=== PATIENT | female | born 1970 | race Hispanic/Latino ===

== ENCOUNTER 2018-03-26 22:23 | Emergency (ER) | payer OTHER ==
[2018-03-26 22:56] LABS: RAPID GROUP A STREP NEGATIVE (NEGATIVE)
[2018-03-26] MEDS ORDERED: GUAIFENESIN-CODEINE 5 ML SYRUP ONE (23:41)
[2018-03-26] MEDS ORDERED: BENZONATATE 100 MG CAPSULE PO ONE (23:41)
[2018-03-27] MEDS ORDERED: AZITHROMYCIN 250 MG TABLET PO ONE (00:13)
[2018-03-27] MEDS ORDERED: ALBUTEROL SULFATE 0.083% 2.5 MG/3 ML INH IH ONE (00:25)
== END 2018-03-27 01:19 | disposition home or self-care (01) ==
LOC: EDH 22:23
DX: J18.9 Pneumonia, unspecified organism (principal); I10 Essential (primary) hypertension; E11.9 Type 2 diabetes mellitus without complications; Z90.710 Acquired absence of both cervix and uterus; Z90.89 Acquired absence of other organs; Z98.890 Other specified postprocedural states
CPT/HCPCS: 71046; 87804; 87880; 93005; 94640

== ENCOUNTER 2018-06-01 17:46 | Inpatient (IN) | payer OTHER ==
[~2018-06-01] VITALS: Ht 162.6 cm; Wt 95.6 kg
[2018-06-01 18:09] LABS: BASOPHILS % (AUTO) 0.9 % (0.0-5.0); EOSINOPHILS % (AUTO) 2.7 % (0.0-8.0); HEMATOCRIT 41.4 % (36-48); LYMPHOCYTES % (AUTO) 29.5 % (21.0-51.0); MEAN CORPUSCULAR HGB CONC 34.7 g/dL (32.0-36.0); MEAN CORPUSCULAR VOLUME 89.4 fL (79-99); MONOCYTES % (AUTO) 6.5 % (3.0-13.0); NEUTROPHILS % (AUTO) 60.4 % (40.0-77.0); PLATELET COUNT (AUTO) 289 K/uL (130-400); RED BLOOD CELL COUNT(AUTO) 4.63 MIL/uL (4.00-5.50); RED CELL DISTRIBUTION WIDTH 13.3 % (11.0-15.5); WHITE BLOOD COUNT (AUTO) 8.9 K/uL (4.8-10.8)
[2018-06-01 18:27] LABS: INR 0.95 (0.85-1.15); PARTIAL THROMBOPLASTIN TIME 25.4 SEC (26.3-35.5)
[2018-06-01 18:30] LABS: ALBUMIN 3.6 g/dL (3.5-5.0); BILIRUBIN,TOTAL 0.9 mg/dL (0.2-1.0); CREATININE 0.9 mg/dL (0.5-1.5); POTASSIUM 3.6 mmol/L (3.5-5.1); TOTAL PROTEIN, SERUM 7.4 g/dL (6.0-8.3)
[2018-06-01 18:36] LABS: BILIRUBIN,URINE Negative (NEGATIVE); COLOR,URINE Yellow (YELLOW); GLUCOSE, URINE (UA) >=1000 mg/dL (NEGATIVE); KETONES,URINE Negative (NEGATIVE); LEUKOCYTE ESTERASE ,URINE Negative (NEGATIVE); NITRATE,URINE Negative (NEGATIVE); OCCULT BLOOD,URINE Negative (NEGATIVE); PROTEIN,URINE Negative (NEGATIVE)
[2018-06-01 18:44] LABS: AMPHET/METH SCREEN,URINE NEGATIVE (NEGATIVE); BARBITURATE SCREEN, URINE NEGATIVE (NEGATIVE); BENZODIAZEPINES SCREEN,URINE NEGATIVE (NEGATIVE); CANNABINOID SCREEN,URINE NEGATIVE (NEGATIVE); COCAINE SCREEN,URINE NEGATIVE (NEGATIVE); OPIATE SCREEN,URINE NEGATIVE (NEGATIVE); PHENCYCLIDINE SCREEN,URINE NEGATIVE (NEGATIVE)
[2018-06-01] MEDS ORDERED: INSULIN HUMULIN R 100 UNIT/ML 3ML ONE (18:59)
[2018-06-01 19:03] LABS: AMORPHOUS SEDIMENT,UR Few /LPF (None Seen); BACTERIA,URINE Few /HPF (None Seen); RBC,URINE None Seen /HPF (0-1); SQUAMOUS EPITHELIAL CELL,UR 0-2 /HPF (0-2); WBC,URINE 0-1 /HPF (0-1)
[2018-06-01 19:12] LABS: APPEARANCE,URINE SLIGHTLY CLOUDY (CLEAR)
[2018-06-01] MEDS ORDERED: ACETAMINOPHEN 325 MG TAB PO PRN (20:15)
[2018-06-01] MEDS ORDERED: ONDANSETRON HCL 4 MG/2 ML VIAL IV PRN (20:15)
[2018-06-01] MEDS ORDERED: SODIUM CHLORIDE 0.9% 1000ML 1,000 ML IV ONE (20:31)
[2018-06-01] MEDS ORDERED: ASPIRIN 81MG TAB.CHEW ONE (20:31)
[2018-06-01] MEDS ORDERED: CLOPIDOGREL BISULFATE 300 MG TAB ONE (20:31)
[2018-06-01 21:45] VITALS: BP 159/71
[2018-06-01] MEDS ORDERED: CHOL100053 PO (23:10)
[2018-06-01] MEDS ORDERED: SIMV10TA6 PO (23:10)
[2018-06-01] MEDS ORDERED: EMPA10TA PO (23:10)
[2018-06-02] VITALS: BP 164/78
[2018-06-02] MEDS: FAMOTIDINE/PF 20 MG/2 ML VIAL IV SCH ×3 (02:19→21:37)
[2018-06-02] MEDS: ACETAMINOPHEN 325 MG TAB PO PRN (02:22)
[2018-06-02 04:00] VITALS: BP 168/80
[2018-06-02 06:08] LABS: HEMOGLOBIN A1C 9.7 % (4.0-6.0)
[2018-06-02 06:39] LABS: THYROID STIMULATING HORMONE 1.38 uIU/mL (0.36-3.74)
[2018-06-02] MEDS ORDERED: INSULIN HUMULIN R 100 UNIT/ML 3ML ONE (07:57)
[2018-06-02 08:00] VITALS: BP 161/77
[2018-06-02] MEDS: INSULIN HUMULIN R 100 UNIT/ML 3ML SQ SCH ×3 (08:06→21:41)
[2018-06-02] MEDS: VITAMIN D PO SCH (09:00)
[2018-06-02] MEDS ORDERED: GADODIAMIDE 10 MMOL/20 ML ML IV ONE (09:21)
--- NOTE | 2018-06-02 10:10 | NUR ---
DYSPHAGIA EVAL COMPLETE. -S/S OF ASPIRATION. RECOMMEND REGULAR, THIN LIQUID DIET; PILLS WHOLE WITH LIQUIDS. PATIENT INFORMATION: Pt IS A 47 Y.O. FEMALE REFERRED FOR A BEDSIDE DYSPHAGIA EVALUATION SECONDARY TO ADMITTING DIAGNOSIS OF TIA. Pt COOPERATIVE WITH EVALUATION. Pt CURRENTLY ADMITTED SECONDARY TO TIA AND UNCONTROLLED NON-INSULIN DEPENDENT DIABETES MELLITUS. Pt HAS A PAST MEDICAL HISTORY SIGNIFICANT FOR NON-INSULIN DEPENDENT DIABETES MELLITUS, GERD, OBESITY, TOBACCO ABUSE, PARTIAL HYSTERECTOMY, TUBAL LIGATION, , TONSILLECTOMY, RHINOPLASTY. EVALUATION: SWALLOW FUNCTION AND EFFICIENCY WITHIN FUNCTIONAL LIMITS. ORAL MOTOR STRENGTH, COORDINATION, AND ROM WITHIN FUNCTIONAL LIMITS. LARYNGEAL ELEVATION/EXCURSION STRONG WITH TIMELY PHARYNGEAL RESPONSE. NO OVERT SIGNS OR SYMPTOMS OF ASPIRATION PRESENT AT BEDSIDE. VOCAL QUALITY CLEAR WITH NO THROAT CLEAR OR COUGH RESPONSE PRESENT. RECOMMENDATIONS: 1. REGULAR TEXTURE, THIN LIQUID DIET; PILLS WHOLE WITH LIQUIDS. 2. COMPENSATORY STRATEGIES (PROPHYLAXIS): *SEATED AT 90 DEGREE ANGLE G-CODES SWALLOWING: [id number] Addendum: 06/02/18 at 1239 by JUANA [facility] Amended: Links added.
--- NOTE | 2018-06-02 10:20 | NUR ---
COGNITIVE EVAL COMPLETE. COGNITIVE-LINGUISTIC ABILITIES WITHIN FUNCTIONAL LIMITS. PATIENT INFORMATION: Pt IS A 47 YEAR OLD FEMALE REFERRED FOR A COGNITIVE-LINGUISTIC EVALUATION SECONDARY TO DIAGNOSIS OF TIA. Pt COOPERATIVE DURING THE EVALUATION AND SERVED THE PRIMARY INFORMANT FOR MEDICAL AND SOCIAL HISTORY. Pt CURRENTLY ADMITTED SECONDARY TO TIA. Pt HAS A PAST MEDICAL HISTORY SIGNIFICANT FOR NON-INSULIN DEPENDENT DIABETES MELLITUS, GERD, OBESITY, TOBACCO ABUSE, PARTIAL HYSTERECTOMY, TUBAL LIGATION, , TONSILLECTOMY, RHINOPLASTY. EVALUATION: Pt AAOX3. Pt REQUESTS WANTS AND NEEDS INDEPENDENTLY. Pt INTELLIGIBLE AT 100% ACCURACY TO THE UNFAMILIAR LISTENER. Pt COMMUNICATING AT CONVERSATIONAL LEVEL WITH NO DEFICITS IDENTIFIED AT THIS TIME. Pt COMPLETED COGNITIVE-LINGUISTIC EVALUATION TARGETING: ORIENTATION, ATTENTION/CONCENTRATION, MEMORY (IMMEDIATE, SHORT-TERM AND LONG-TERM), PROBLEM SOLVING, LOGIC/REASONING/INFERENCE, THOUGHT ORGANIZATION, FUNCTIONAL MATH AND TELLING TIME. Pt ABLE TO COMPLETE TASKS WITH CORRECT AND TIMELY ANSWERS TO ALL SECTIONS. G-CODES SPOKEN LANGUAGE EXPRESSION: [id number] Addendum: 06/02/18 at 1242 by KITA BURROWS Amended: Links added.
[2018-06-02] MEDS: ATORVASTATIN CALCIUM 10 MG TABLET PO SCH (11:07)
[2018-06-02] MEDS: CLOPIDOGREL BISULFATE 75 MG TAB PO SCH (11:07)
--- NOTE | 2018-06-02 11:56 | NUR ---
Diabetes/Heart Healthy diet education: JOSE provided pt with printed materials on heart healthy: Mediterranean diet. JOSE reviewed diabetic diet with pt verbally. Pt with good knowledge and understanding on diabetes diet. However pt reports high soda intake over the weekend. Pt receiving diagnosis of stoke by neurologist during diet education visit. Pt became very emotional, RD provided space and time for pt to process diagnosis. Pt has been highly encourage to review materials and request RD consult when ready for continued diet education. Addendum: 06/02/18 at [address] Amended: Links added.
[2018-06-02 12:00] VITALS: BP 160/83
--- NOTE | 2018-06-02 12:59 | NUR ---
Nutrition Intervention: Nutrition notification for DX TIA, uncontrolled DM. Pt reports PMH of DM and elevated blood sugars for unknown reasons. Pt also reports high sugar, high fat intake. RD has provided pt with heart healthy diet education with verbal focus on the importance of controlled blood sugars. Pt has been instructed to request RD consult for continued diet education when needed. Pt has verbalized understanding. Recommendations: Modify diet therapy with heart healthy. Consult RD as nutrition concerns arise. Addendum: 06/02/18 at [address] Amended: Links added.
[2018-06-02 16:00] VITALS: BP 163/90
--- NOTE | 2018-06-02 16:11 | NUR ---
DCP CM met with pt discussed dc plans. Pt independent prior to admission, lives at home with sister Peace. Denies any equipments/services. Pt feels safe to go back home, still drives and works, sister able to assist with transportation and needs as necessary. DC plan to home once stable. CM to cont to follow up. Addendum: 06/02/18 at 1612 by ALEJANDRO FARRELL LVN CM Amended: Links added.
[2018-06-02 19:45] VITALS: BP 162/77
--- NOTE | 2018-06-02 20:45 | NUR ---
MEDS DUE MEDS ADMINISTERED, TOLERATED WELL. NO DISTRESS NOTED. KEPT RESTED AND COMFORTABLE. CALL LIGHT WITHIN REACH. WILL MONITOR PT.
--- NOTE | 2018-06-02 22:10 | NUR ---
URINE URINE SAMPLE SENT TO LAB FOR ANALYSIS.
[2018-06-02 22:51] LABS: APPEARANCE,URINE HAZY (CLEAR); BILIRUBIN,URINE NEGATIVE (NEGATIVE); COLOR,URINE YELLOW (YELLOW); GLUCOSE, URINE (UA) >=1000 mg/dL (NEGATIVE); KETONES,URINE 5 mg/dL (NEGATIVE); LEUKOCYTE ESTERASE ,URINE NEGATIVE (NEGATIVE); NITRATE,URINE NEGATIVE (NEGATIVE); OCCULT BLOOD,URINE NEGATIVE (NEGATIVE); PH,URINE 7.5 (5.0-8.0); PROTEIN,URINE NEGATIVE (NEGATIVE)
[2018-06-02 22:53] LABS: RBC,URINE None Seen /HPF (0-1)
[2018-06-02 22:54] LABS: BACTERIA,URINE Many /HPF (None Seen); SQUAMOUS EPITHELIAL CELL,UR 0-2 /HPF (0-2)
[2018-06-03] VITALS (7 sets, daily range): BP systolic 144–183; BP diastolic 80–99
--- NOTE | 2018-06-03 02:00 | NUR ---
ROUNDS PT FAIRLY ASLEEP WITH RESPIRATIONS EVEN AND UNLABORED. NO DISTRESS NOTED. KEPT UNDISTURBED FOR NOW.
[2018-06-03 04:42] LABS: BASOPHILS % (AUTO) 0.5 % (0.0-5.0); EOSINOPHILS % (AUTO) 3.8 % (0.0-8.0); HEMATOCRIT 37.1 % (36-48); LYMPHOCYTES % (AUTO) 36.1 % (21.0-51.0); MEAN CORPUSCULAR HEMOGLOBIN 31.8 pg (27.0-33.0); MEAN CORPUSCULAR HGB CONC 35.7 g/dL (32.0-36.0); MEAN CORPUSCULAR VOLUME 88.8 fL (79-99); MONOCYTES % (AUTO) 5.7 % (3.0-13.0); NEUTROPHILS % (AUTO) 53.9 % (40.0-77.0); NUCLEATED RED BLOOD CELLS 0.1 % (0.0-0.19); PLATELET COUNT (AUTO) 259 K/uL (130-400); RED BLOOD CELL COUNT(AUTO) 4.18 MIL/uL (4.00-5.50); RED CELL DISTRIBUTION WIDTH 13.4 % (11.0-15.5); WHITE BLOOD COUNT (AUTO) 7.7 K/uL (4.8-10.8)
[2018-06-03 05:07] LABS: CREATININE 0.6 mg/dL (0.5-1.5); POTASSIUM 3.5 mmol/L (3.5-5.1)
--- NOTE | 2018-06-03 06:24 | NUR ---
MEDS DUE INSULIN DOSE ADMINISTERED, TOLERATED WELL. PT CLAIMS OF FEELING BETTER, JUST LITTLE NUMBNESS ON THE RT LOWER LIP. STRENGTH OF THE RT HAND IS STRONGER WHEN CHECKED. FOR MORE CARE.
[2018-06-03] MEDS: INSULIN HUMULIN R 100 UNIT/ML 3ML SQ SCH ×4 (06:28→21:01)
[2018-06-03] MEDS: VITAMIN D PO SCH (09:00)
[2018-06-03] MEDS: CLOPIDOGREL BISULFATE 75 MG TAB PO SCH (10:33)
[2018-06-03] MEDS: FAMOTIDINE/PF 20 MG/2 ML VIAL IV SCH ×2 (10:33→19:49)
[2018-06-03] MEDS: ATORVASTATIN CALCIUM 10 MG TABLET PO SCH (10:34)
--- NOTE | 2018-06-03 19:50 | NUR ---
ASSESS SHIFT ASSESSMENT DONE, PLEASE REFER TO CHART. PT COMPLAINTS OF HEADACHE. DUE MED ADMINISTERED, TYLENOL PO GIVEN FOR PAIN. BP ELEVATED AT 183/84 NO MEDS NEEDED PER MD PARAMETERS. KEPT RESTED AND COMFORTABLE IN BED. WILL RE-ASSESS PT. Addendum: 06/03/18 at 2145 by ELSA LÓPEZ RN RN Amended: Links added.
[2018-06-03] MEDS: ACETAMINOPHEN 325 MG TAB PO PRN (19:53)
--- NOTE | 2018-06-03 21:40 | NUR ---
WALK PT WALKING IN THE HALLWAY WITH FAMILY, TOLERATING ACTIVITY WELL. GOOD BALANCE NOTED.
--- NOTE | 2018-06-03 22:45 | NUR ---
PA PT COMPLAINTS OF DRY COUGH AND WANTS SOME COUGH MEDICATION. PAGED BRYAN MARIA CHEMISTRY INSTRUCTOR FOR HOSPITALIST, PAGED VIA ANSWERING SERVICE AND REFERRED PT'S COMPLAINTS. NEW MED ORDER GIVEN, PLEASE REFER TO CPOE. WILL MEDICATE PT.
[2018-06-03] MEDS ORDERED: HYDRALAZINE HCL 20 MG/ML VIAL IV PRN (23:00)
[2018-06-03] MEDS ORDERED: BENZONATATE 100 MG CAPSULE PO PRN (23:00)
--- NOTE | 2018-06-04 02:00 | NUR ---
ROUNDS PT RESTING WELL, FAIRLY ASLEEP WITH RESPIRATIONS EVEN AND UNLABORED. NO DISTRESS NOTED. KEPT UNDISTURBED FOR NOW.
[2018-06-04] MEDS: ACETAMINOPHEN 325 MG TAB PO PRN (03:43)
--- NOTE | 2018-06-04 03:43 | NUR ---
HEADACHE PT CLAIMS OF HEADACHE. V/S MONITORED BY PCP, STABLE. MEDICATED WITH TYLENOL PO. KEPT COMFORTABLE IN BED. WILL RE-ASSESS PT. Addendum: 06/04/18 at 0410 by ELSA LÓPEZ RN RN Amended: Links added.
[2018-06-04 04:39] VITALS: BP 156/80
--- NOTE | 2018-06-04 05:50 | NUR ---
ROUNDS PT RESTING WELL. NO CONCERNS VERBALIZED. NO DISTRESS NOTED. KEPT COMFORTABLE. FOR MORE CARE.
[2018-06-04] MEDS: INSULIN HUMULIN R 100 UNIT/ML 3ML SQ SCH ×2 (06:47→11:56)
[2018-06-04 07:30] VITALS: BP 142/73
[2018-06-04] MEDS ORDERED: MELA2.5L PO (07:44)
[2018-06-04] MEDS ORDERED: LOSA1TAB37 PO (07:44)
[2018-06-04] MEDS ORDERED: PROG50VI5 PO (07:44)
[2018-06-04] MEDS ORDERED: ATOR10 PO (07:56)
[2018-06-04] MEDS ORDERED: CLOP75TA14 PO (07:56)
[2018-06-04] MEDS: VITAMIN D PO SCH (09:00)
[2018-06-04] MEDS: FAMOTIDINE/PF 20 MG/2 ML VIAL IV SCH (09:58)
[2018-06-04] MEDS: ATORVASTATIN CALCIUM 10 MG TABLET PO SCH (09:58)
[2018-06-04] MEDS: CLOPIDOGREL BISULFATE 75 MG TAB PO SCH (09:58)
--- NOTE | 2018-06-04 11:54 | NUR ---
Diabetes diet education: Diabetes diet education consult received. Pt states no need for diabetes diet education however pt with multiple questions on diets, lunch, breakfast and snacks. JOSE answered all of pt's questions in detail. Please consult JOSE as nutrition concerns arise. Addendum: 06/04/18 at [address] Amended: Links added.
== END 2018-06-04 12:24 | disposition home or self-care (01) | DRG 65 ==
LOC: EDH 17:46 → EDHIP 17:47 → EDH 19:41 → 3AH 21:10
PROVIDERS: ADMIT Internal Medicine; ATTEND Internal Medicine
DX: I63.50 Cerebral infarction due to unspecified occlusion or stenosis of unspecified cerebral artery (principal); G81.91 Hemiplegia, unspecified affecting right dominant side; F17.200 Nicotine dependence, unspecified, uncomplicated; E11.9 Type 2 diabetes mellitus without complications; E78.5 Hyperlipidemia, unspecified; I10 Essential (primary) hypertension; K21.9 Gastro-esophageal reflux disease without esophagitis; Z90.711 Acquired absence of uterus with remaining cervical stump
CPT/HCPCS: 36415; 70450; 70549; 70551; 71045; 80048; 80053; 80061; 80305; 81001; 82550; 82948; 83036; 83874; 84439; 84443; 84484; 85025; 85610; 85730; 86592; 92522; 92610; 93005; 93306; 99291; A9579; G0378; J0360; J1815; J3490; J7030